=== PATIENT | female | born 1980 | race Two or more races ===

== ENCOUNTER 2018-04-06 09:50 | Inpatient (IN) | payer MEDICAID, OTHER ==
[2018-04-06] MEDS: LACTATED RINGER'S 1,000 ML IV ×3 (10:21→15:27)
[2018-04-06] MEDS ORDERED: CARBOPROST 250 MCG INJ IM ×2 (10:30→21:30)
[2018-04-06] MEDS ORDERED: OXYTOCIN 30 UNITS/LR 500 ML IV ×2 (10:30→21:30)
[2018-04-06] MEDS ORDERED: METHYLERGONOVINE 0.2 MG INJ IM ×2 (10:30→21:30)
[2018-04-06] MEDS ORDERED: MISOPROSTOL 200 MCG TAB PR ×2 (10:30→21:30)
[2018-04-06 10:39] LABS: ADD MAN DIFF? NO
[2018-04-06 10:41] LABS: BASOPHILS % 0.4 % (0.0-2.0); EOSINOPHILS % 0.5 % (0.0-7.0); HEMATOCRIT 43.4 % (37.0-47.0); HEMOGLOBIN 14.8 g/dl (12.0-16.0); LYMPHOCYTES # 2.4 10^3/ul (0.8-2.9); LYMPHOCYTES % 30.6 % (15.0-51.0); MEAN CORPUSCULAR HEMOGLOBIN 32.4 pg (29.0-33.0); MEAN CORPUSCULAR HGB CONC 34.1 g/dl (32.0-37.0); MEAN PLATELET VOLUME 11.1 fl (7.4-10.4); MONOCYTE # 0.6 10^3/ul (0.3-0.9); MONOCYTES % 7.9 % (0.0-11.0); NEUTROPHIL # 4.6 10^3/ul (1.6-7.5); NEUTROPHILS % 60.1 % (39.0-77.0); PLATELET COUNT 269 10^3/UL (140-415); RED BLOOD COUNT 4.57 10^6/ul (4.20-5.40); RED CELL DISTRIBUTION WIDTH 13.2 % (11.5-14.5)
[2018-04-06 10:41] LABS: WHITE BLOOD COUNT 7.7 10^3/ul (4.8-10.8)
[2018-04-06 11:03] LABS: INR 0.81; PROTIME 11.2 Sec (11.9-14.9); PT RATIO 0.9
[2018-04-06 11:04] LABS: PARTIAL THROMBOPLASTIN TIME 26.9 Sec (25.0-35.0)
[2018-04-06 11:37] LABS: HEPATITIS B SURFACE ANTIGEN NEGATIVE (NEGATIVE)
[2018-04-06] MEDS ORDERED: FENTAnyl 50 MCG/ML VIAL (15:44)
[2018-04-06] MEDS ORDERED: morphine SULFATE/PF (10 MG/10 ML) INJ (15:45)
[2018-04-06] MEDS ORDERED: BUPIVACAINE 0.75%/DEXT (SPINAL) 2 ML INJ (15:45)
[2018-04-06] MEDS ORDERED: FAMOTIDINE 20 MG INJ (15:57)
[2018-04-06] MEDS ORDERED: DEXAMETHASONE 4 MG/ML 1 ML INJ (15:57)
[2018-04-06] MEDS ORDERED: ONDANSETRON 4 MG INJ (15:57)
[2018-04-06] MEDS ORDERED: DIPHENHYDRAMINE 50 MG INJ IV (17:30)
[2018-04-06] MEDS ORDERED: NALOXONE (0.4 MG/ML) INJ IV (17:30)
[2018-04-06] MEDS ORDERED: ZOLPIDEM 5 MG TAB PO (17:30)
[2018-04-06] MEDS ORDERED: HYDROmorphONE 0.5 MG/0.5 ML SYG IV ×2 (17:30)
[2018-04-06] MEDS ORDERED: ONDANSETRON 4 MG INJ IV (17:30)
[2018-04-06] MEDS: OXYTOCIN 30 UNITS/LR 500 ML IV ×2 (17:49→22:03)
[2018-04-06] MEDS: CEFAZOLIN 2 GM/50 ML (PMX) 50 ML IV (18:04)
[2018-04-06 19:06] LABS: RAPID PLASMA REAGIN NONREACTIVE (NR)
[2018-04-06] MEDS: CEFAZOLIN 1 GM/50 ML (PMX) 50 ML IVPB (22:03)
[2018-04-06] MEDS: KETOROLAC 30 MG INJ IV (22:09)
[2018-04-07] MEDS: OXYTOCIN 30 UNITS/LR 500 ML IV ×4 (01:27→14:58)
[2018-04-07 08:55] LABS: ADD MAN DIFF? NO
[2018-04-07 09:03] LABS: WHITE BLOOD COUNT 11.8 10^3/ul (4.8-10.8)
[2018-04-07 09:03] LABS: BASOPHILS % 0.3 % (0.0-2.0); EOSINOPHILS % 0.1 % (0.0-7.0); HEMATOCRIT 41.9 % (37.0-47.0); HEMOGLOBIN 14.2 g/dl (12.0-16.0); LYMPHOCYTES # 2.2 10^3/ul (0.8-2.9); LYMPHOCYTES % 18.6 % (15.0-51.0); MEAN CORPUSCULAR HEMOGLOBIN 32.4 pg (29.0-33.0); MEAN CORPUSCULAR HGB CONC 33.9 g/dl (32.0-37.0); MEAN CORPUSCULAR VOLUME 95.7 fl (82.0-101.0); MEAN PLATELET VOLUME 11.2 fl (7.4-10.4); MONOCYTE # 1.1 10^3/ul (0.3-0.9); MONOCYTES % 8.9 % (0.0-11.0); NEUTROPHIL # 8.4 10^3/ul (1.6-7.5); NEUTROPHILS % 71.6 % (39.0-77.0); PLATELET COUNT 266 10^3/UL (140-415); RED BLOOD COUNT 4.38 10^6/ul (4.20-5.40); RED CELL DISTRIBUTION WIDTH 13.2 % (11.5-14.5)
[2018-04-07] MEDS: SENNA/DOCUSATE NA (8.6MG/50MG) TAB PO ×2 (09:47→20:15)
[2018-04-07] MEDS: KETOROLAC 30 MG INJ IV (11:46)
[2018-04-07] MEDS ORDERED: HYDROCODONE/APAP (5/325) TAB PO (17:30)
[2018-04-07] MEDS ORDERED: OXYCODONE/ACETAMINOPHEN (5/325) TAB PO ×2 (17:30)
[2018-04-07] MEDS: IBUPROFEN 600 MG TAB PO ×2 (17:44→23:32)
[2018-04-07] MEDS: HYDROCODONE/APAP (5/325) TAB PO (20:15)
[2018-04-08] MEDS: IBUPROFEN 600 MG TAB PO ×4 (06:06→23:41)
[2018-04-08] MEDS: SENNA/DOCUSATE NA (8.6MG/50MG) TAB PO ×2 (09:18→20:44)
[2018-04-08] MEDS: LANOLIN 7 GM TUBE TOP (09:18)
[2018-04-08] MEDS: NA PHOSPHATE/BIPHOS 133 ML ENEMA PR (13:22)
[2018-04-09] MEDS: IBUPROFEN 600 MG TAB PO ×2 (05:31→12:00)
[2018-04-09] MEDS: SENNA/DOCUSATE NA (8.6MG/50MG) TAB PO (09:00)
[2018-04-09] MEDS: DIPHTH/TET/ACEL PERTUSS (ADULT) 0.5 ML VIAL IM* (09:35)
== END 2018-04-09 16:40 | disposition home or self-care (01) | DRG 766 ==
LOC: L-D 09:50 → PP1 20:17
PROVIDERS: Obstetrics & Gynecology
PROC: 10D00Z1 Extraction of Products of Conception, Low, Open Approach (ICD-10-PCS; principal; 2018-04-06 12:30)
PROC: 0UL70ZZ Occlusion of Bilateral Fallopian Tubes, Open Approach (ICD-10-PCS; 2018-04-06 12:30)
PROC: 3E033VJ Introduction of Other Hormone into Peripheral Vein, Percutaneous Approach (ICD-10-PCS; 2018-04-06 12:30)
DX: O34.211 Maternal care for low transverse scar from previous cesarean delivery (principal); Z30.2 Encounter for sterilization; Z3A.39 39 weeks gestation of pregnancy; Z37.0 Single live birth
CPT/HCPCS: 85025; 85610; 85730; 86592; 86850; 86900; 86901; 87340; 88302; 93970; 99464